=== PATIENT | male | born 1980 | race Caucasian/White ===

== ENCOUNTER 2016-11-10 15:39 | Emergency (ER) | payer OTHER ==
[~2016-11-10] VITALS: Ht 182.9 cm; Wt 77.5 kg
[~2016-11-10 15:39] MED LIST: AMIT25 PO; LANTINJ SC; NOVOLOGP2 SQ; [UNRECOGNIZED DRUG - OTHER]; glucometer; syringes; test strips
[2016-11-10 16:01] VITALS: BP 124/89; PULSE 105; RESP 16; TEMP 99; O2SAT 97
[2016-11-10] MEDS ORDERED: AMIT1TAB79 PO (16:15)
[2016-11-10] MEDS ORDERED: NOVOLOGP2 SQ (16:15)
[2016-11-10] MEDS ORDERED: LANTUS2P SQ (16:15)
--- NOTE | 2016-11-10 16:28 | PD ---
HPI Chief Complaint: Injury Time Seen by Provider: 16:28 Travel History International Travel<30 days: No Contact w/Intl Traveler<30days: No Traveled to known affect area: No History of Present Illness HPI 36 year old right hand dominant male presents to the ED for evaluation of right 3/10 hand pain, worse with ROM. Onset after being struck by a baseball bat while at softball practice last night. Endorses swelling, bruising and pain of the right hand, worse in the 4th and 5th digits. He denies numbness, tingling, weakness, limitations to ROM of the fingers of the hand. Denies previous injury to the same area. Denies chronic health problems, takes no daily medications. NKDA. PFSH Past Medical History Diabetes: Yes (type 1) Patient Takes Glucophage: No Tetanus Vaccination: < 5 Years Influenza Vaccination: Yes Past Surgical History Other Surgery: Yes (INGUINAL HERNIA REPAIR) Social History Alcohol Use: Yes (RARE) Tobacco Use: No Substance Use: No Allergies-Medications (Allergen,Severity, Reaction): Coded Allergies: No Known Allergies (Unverified , 11/10/16) Reported Meds & Prescriptions Reported Meds & Active Scripts Active Ibuprofen 800 Mg Tab 800 Mg PO Q8H [test strips] Contor Next Easy test strips. Check x4 daily. #120. Refills #11. [solostar needles] dispense #30 Lantus Solostar [place] [syringes] please dispense 100 insulin syringes [glucometer] please dispense one glucometer with 100 lancets and test strips Reported Novolog Inj (Insulin Aspart) 1,000 Unit/10 Ml Vial 0 SQ DIRECTED Sliding Scale as directed. Elavil (Amitriptyline HCl) 25 Mg Tab 1 Tab PO DAILY Lantus Inj (Insulin Glargine) 1,000 Unit/10 Ml Vial 5 Units SQ HS Review of Systems Except as stated in HPI: all other systems reviewed are Neg Physical Exam Narrative GENERAL: Well-nourished, well-developed white male in no acute distress. SKIN: Warm and dry. HEAD: Normocephalic. EYES: No scleral icterus. No injection or drainage. NECK: Supple, trachea midline. No JVD or lymphadenopathy. CARDIOVASCULAR: Regular rate and rhythm without murmurs, gallops, or rubs. RESPIRATORY: Breath sounds equal bilaterally. No accessory muscle use. GASTROINTESTINAL: Abdomen soft, non-tender, nondistended. MUSCULOSKELETAL: No cyanosis, or edema. FOCUSED RIGHT UPPER EXTREMITY EXAM: Mild to moderate edema of the dorsal aspect of the right hand, worse in digits 4 and 5. Tender to palpation of the MCP joints of the fourth and fifth digits. Strong finger to thumb opposition on all fingers. No snuffbox tenderness. No limitations to flexion, extension, pronation or supination of the wrist. 2+ radial pulse. Cap refill less than 2 seconds. Sensation intact to light touch distally. BACK: Nontender without obvious deformity. No CVA tenderness. Data Data Last Documented VS Vital Signs Date Time Temp Pulse Resp B/P Pulse Ox O2 Delivery O2 Flow Rate FiO2 11/10/16 16:01 99.0 105 16 124/89 97 Orders Hand, Complete (Rsf0ryl) (11/10/16 16:31) Ice/Cold Pack (11/10/16 16:31) Ibuprofen (Motrin) (11/10/16 16:45) Splint Or Brace Apply/Monitor (11/10/16 17:01) Fiberglass Splint Forearm Adul (11/10/16 ) Sling Cradle Arm (11/10/16 ) MDM Medical Decision Making Medical Screen Exam Complete: Yes Emergency Medical Condition: Yes Differential Diagnosis Contusion versus fracture versus dislocation versus other Narrative Course 36 year old right hand dominant male presents to the ED for evaluation of right hand pain. Onset after being struck by a baseball bat while at softball practice last night. Endorses swelling, bruising and pain of the right hand, worse in the 4th and 5th digits. He denies numbness, tingling, weakness, limitations to ROM of the fingers of the hand. Vitals reviewed. A focused right upper extremity exam reveals mild to moderate edema of the dorsal aspect of the right hand, worse in digits 4 and 5. Tender to palpation of the MCP joints of the fourth and fifth digits. Strong finger to thumb opposition on all fingers. No snuffbox tenderness. No limitations to flexion, extension, pronation or supination of the wrist. 2+ radial pulse. Cap refill less than 2 seconds. Sensation intact to light touch distally. Ice pack was applied. Patient was administered 100 mg ibuprofen. X-rays of the right hand reveal a comminuted mildly displaced fracture of the distal shaft and neck of the fifth metacarpal. Pulmonary gutter splint was placed. Patient was prescribed 800 mg ibuprofen 3 times a day. Follow-up was arranged with Dr. Katz who agrees to the plan of care. Patient's instructed to take medication as prescribed, leave the hand in the splint until cleared by the hand surgeon. He was provided with a note of limited use of the right hand until cleared by the hand surgeon. He is instructed to call Dr. Carreon's office on Sunday. He indicated understanding of the instructions and is amenable to plan of care. He is stable and discharged home. Diagnosis Primary Impression: Fracture of fifth metacarpal bone of right hand Qualified Code: S62.336A - Closed displaced fracture of neck of fifth metacarpal bone of right hand, initial encounter Referrals: Juan Katz MD Patient Instructions: General Instructions, Hand Fracture (ED) Departure Forms: Tests/Procedures, Work Release Special Instructions: No removal of splint of heavy use of the right hand until released by hand surgery. Additional Instructions: Rest, ice, elevate the extremity. Apply ice no longer than 10-15 minutes per hour a few times a day. 800 mg ibuprofen 3 times a day for pain and inflammation. Do not remove the splint for any reason. Follow up with the hand surgeon Sunday. Return to the ED for any urgent or emergent medical condition. Med/Other Pt SpecificInfo: Prescription(s) given Scripts Ibuprofen 800 Mg Cat437 Mg PO Q8H #20 TAB Ref 0 Prov:Paula Tucker MD 11/10/16 Disposition: 01 DISCHARGE HOME Condition: Stable Dian Lee Nov 10, 2016 16:28
[2016-11-10] MEDS ORDERED: IBUPROFEN 800 MG TAB PO ONE (16:45)
--- NOTE | 2016-11-10 17:04 | RADHPO ---
EXAM DATE/TIME: 11/10/2016 16:49 [facility] COMPARISON: No previous studies available for comparison. INDICATIONS : Patient states a softball hit his hand last night, pain and swelling. MEDICAL HISTORY : None. SURGICAL HISTORY : None. ENCOUNTER: Initial ACUITY: 2 days PAIN SCORE: 6/10 LOCATION: Right Hand FINDINGS: There is a comminuted fracture of the neck and distal shaft of the fifth metacarpal. Slight degree of volar angulation/displacement. Articular surfaces appear intact. No subluxation. CONCLUSION: Minimal displaced, mildly comminuted fracture of the distal shaft and neck of the fifth metacarpal. Daniel Hooks MD on November 10, 2016 at 17:02 Board Certified Radiologist. This report was verified electronically.
[2016-11-10] MEDS ORDERED: IBUP800T23 PO (17:13)
== END 2016-11-10 18:05 | disposition home or self-care (01) ==
LOC: PHEFT 15:39
DX: S62.336A Displaced fracture of neck of fifth metacarpal bone, right hand, initial encounter for closed fracture (principal); E10.9 Type 1 diabetes mellitus without complications; W21.11XA Struck by baseball bat, initial encounter; Y93.64 Activity, baseball; Y92.320 Baseball field as the place of occurrence of the external cause; Y99.8 Other external cause status
CPT/HCPCS: 29125; 73130